=== PATIENT | female | born 1990 | race Caucasian/White ===

== ENCOUNTER 2018-06-16 07:58 | Emergency (ER) | payer OTHER, SELFPAY ==
[2018-06-16 08:12] VITALS: BP 122/90; PULSE 95; RESP 18; TEMP 36.7; O2SAT 100; BMI 40.2
--- NOTE | 2018-06-16 08:21 | ED.SKABFB ---
HPI - Skin/Abscess/Foreign Bdy General Chief complaint: Skin/Abscess/Foreign Body Stated complaint: believes she has a bite behind rt ear,swollen,naus Time Seen by Provider: 06/16/18 08:20 Source: patient Mode of arrival: ambulatory Limitations: no limitations History of Present Illness HPI narrative: This is a 27-year-old female comes in with complaint of swelling and pain behind the right ear. Patient states that she noted that she had a little pimple about 2 days ago behind her ear. It became increasingly painful and tender. Friend looked yesterday and circled the area. She states feels even more swollen and now the swelling seems to be underneath the ear patient has not had any fevers. She felt a little bit nauseated but not had any vomiting. She is not having swelling inside the ear. She has maybe some mild pain within the canal of the ear but it is mostly on the outside. She has not had any drainage. she is not at any other skin changes. No other swelling or difficulty with swallowing. Patient is concerned she is scheduled for hysterectomy in the next week and concerned that this may cause issues with her surgery. She denies any other past medical issues, she denies any other past surgeries. She denies any allergies to medications. Related Data Previous Rx's Medication Instructions Recorded sulfamethoxazole-trimethoprim 1 tab PO Q12H #14 tab 06/16/18 [Bactrim DS] Review of Systems Review of Systems ROS Unobtainable: All systems reviewed & are unremarkable except as noted in HPI and below Constitutional Denies chills, Denies fever(s) and Denies headache(s) ENT Ears, Nose, Mouth, and Throat: Reports as per HPI, Denies dental pain, Reports dizziness (Very mild), Denies ear discharge, Reports otalgia (Pain behind the ear), Denies facial pain, Denies headache(s), Denies hoarseness, Denies mouth pain, Denies nasal congestion, Denies neck mass, Denies neck pain, Denies nose pain, Denies odynophagia, Denies sinus pain, Denies sinus pressure, Denies sore throat, Denies throat swelling and Denies tongue swelling Gastrointestinal Gastrointestinal: Denies abdominal pain, Reports nausea, Denies odynophagia and Denies vomiting Musculoskeletal Denies neck pain Integumentary/Breasts Reports changing lesions and Reports erythema Neurologic Reports dizziness (Very mild) and Denies headache(s) Allergic/Immunologic Denies throat swelling and Denies tongue swelling Exam Narrative Exam Narrative: GEN: well nourished, well appearing female, alert and oriented x 3, patient appears to be in mild distress. HEENT: Atraumatic, pupils are equal round reactive to light, extraocular movements are intact, nares are clear, TMs are clear with no fluid, patient has some erythema and swelling in the posterior auricular area just at the crease, there is softness but no fluctuance, there is no sommers or area of drainage. The erythema extends about a cm total in with, some the swelling also extends just below the ear some into the top of the anterior cervical lymph node chain. Patient has some mild swelling of the right anterior cervical chain lymph nodes. There is some fullness and hardness but no fluctuance. Area is tender to touch particularly immediately behind the ear. Patient does not have any tenderness in the inter ear. There is no swelling of the auricle or ear itself. Throat is clear without any exudates, erythema, tonsillar enlargement or uvular deviation, normal speech. HEART: Regular rate and rhythm without murmur, clicks, rubs. LUNGS:Lungs clear to auscultation, no wheezes, rales, crackles, chest moves symmetrically ABD:bowel sounds normal, soft, non-tender, no guarding, rebound, rigidity, no masses noted, no hepatosplenomegaly MSCL: full range of motion, normal gait NEURO:CN 2-12 intact, sensation normal Initial Vital Signs Initial Vital Signs: Vital Signs Temperature 98.0 F 06/16/18 08:12 Pulse Rate 95 H 06/16/18 08:12 Respiratory Rate 18 06/16/18 08:12 Blood Pressure 122/90 06/16/18 08:12 Pulse Oximetry 100 06/16/18 08:12 Course Vital Signs - 8 hr 06/16/18 08:12 Temperature 98.0 F Pulse Rate 95 H Respiratory Rate 18 Blood Pressure 122/90 Pulse Oximetry 100 MDM - Skin/Abscess/Foreign Bdy MDM Narrative Medical decision making narrative: I discussed with patient when I palpate there does not feel to be an area of fluid collection so I would not do an incision and drainage at this time. Plan to start patient on Bactrim. The location appears to be outside the hair lines was less likely a folliculitis. Um patient was concerned about spider bite we discussed that this is less likely. Patient and I discussed signs and symptoms to watch if she is having increasing redness, fevers or other concerns. Discharge Plan Departure Patient Disposition: Home Clinical Impression: Cellulitis of postauricular region Discharge Date/Time: 06/16/18 08:45 Interventions: ED Discharge Assessment Last Done: 06/16/18 08:45 Instructions: DI for Cellulitis -- Adult Activity Restrictions/Additional Instructions: Follow-up with your physician in the next 2-3 days for recheck. Take antibiotics until completely gone. Start antibiotics this morning. You may take ibuprofen 800 mg every 8 hours as needed for pain, you may take this with Tylenol up to a 1000 mg every 8 hours as needed. Use warm compresses for 20 minutes or warm showers 3-4 times daily to the affected area. Return to the emergency department for fevers greater than 100.4 F, rapidly worsening swelling, redness, new drainage, changes in hearing, new dizziness, lightheadedness or passing-out, persistent vomiting, swelling of the mouth, oropharynx or spreading on the face or other new or concerning symptoms. Prescriptions: New sulfamethoxazole-trimethoprim [Bactrim DS] 800-160 mg tablet 1 tab PO Q12H Qty: 14 RF: 0
== END 2018-06-16 08:45 | disposition home or self-care (01) ==
PROVIDERS: Emergency Provider Emergency Medicine
DX: L03.811 Cellulitis of head [any part, except face] (principal)
CPT/HCPCS: 99282; 99283